=== PATIENT | male | born 1995 | race Caucasian/White ===

== ENCOUNTER 2016-10-21 19:33 | Emergency (ER) | payer OTHER ==
[~2016-10-21] VITALS: Ht 180.3 cm; Wt 59.4 kg
[~2016-10-21 19:33] MED LIST: AMOXICILLIN500 M1 PO; CIPRO500 MG PO; ENDOCET 5-3251 EACH PO; FLAGYL500 MG PO; IMODIUM MS REL1 EACH PO; LIDODERM 5% P1 PATCH TD; MOBIC15 MG PO; MOTRIN600 MG PO; NAPROXEN500 MG PO; NORCO 5/3251 TABLET PO; PREDNISONE20 MG PO; ROXICODONE5 MG PO; SKELAXIN800 MG PO; TAMSULOSIN HCL0.4 MG PO; ULTRAM50 MG PO; VALIUM5 MG PO; VYVANSE30 MG PO; ZOFRAN ODT4 MG PO; ZOFRAN4 MG PO
[2016-10-21 19:53] LABS: HEMATOCRIT 41.5 % (38.0-50.0); MCH 30.4 PG (29.0-34.0); MCHC 35.2 G/DL (30.0-36.0); MCV 86.3 FL (86-99); MEAN PLAT.VOLUME 10.2 uM^3 (9.0-12.4); PLATELET COUNT 170 K/uL (156-360); RBC DIS.WIDTH-CV 12.8 % (11.8-14.6); RBC DIS.WIDTH-SD 39.7 % (39-53); RED BLOOD COUNT 4.81 M/uL (4.00-5.50); WHITE BLOOD COUNT 7.8 K/uL (4.1-10.2)
[2016-10-21 20:03] LABS: CHLORIDE 104 mEq/L (99-109); POTASSIUM 3.7 mEq/L (3.7-5.4); SODIUM 140 mEq/L (136-147)
[2016-10-21 20:04] LABS: GLUCOSE 109 mg/dL (70-99)
[2016-10-21 20:06] LABS: ANION GAP 12 MEQ/L (2-14)
[2016-10-21 20:08] LABS: GFR ESTIMATE (CALCULATED) > 59 mL/min/
[2016-10-21 20:09] LABS: UREA NITROGEN (BUN) 13 mg/dL (9-23)
[2016-10-21 20:13] LABS: TROP-I INTERPRETATION NEGATIVE; TROPONIN-I < 0.01 ng/mL (0.0-0.30)
[2016-10-21] MEDS ORDERED: NAPROXEN500 MG PO (20:42)
[2016-10-21 21:07] VITALS: BP 143/83
== END 2016-10-21 21:10 | disposition home or self-care (01) ==
LOC: RME 19:33 → EME 19:33 → RME 21:10
DX: R07.81 Pleurodynia (principal)
CPT/HCPCS: 71020; 80048; 84484; 85027; 93005; 99281; 99284

== ENCOUNTER 2017-11-02 22:52 | Emergency (ER) | payer OTHER ==
[~2017-11-02] VITALS: Ht 180.3 cm; Wt 54.7 kg
[2017-11-03 01:04] LABS: HEMATOCRIT 39.3 % (38.0-50.0); HEMOGLOBIN 13.9 G/DL (12.5-16.6); MCH 30.2 PG (29.0-34.0); MCHC 35.4 G/DL (30.0-36.0); MCV 85.4 FL (86-99); PLATELET COUNT 115 K/uL (156-360); RBC DIS.WIDTH-CV 12.1 % (11.8-14.6); RBC DIS.WIDTH-SD 37.9 % (39-53); WHITE BLOOD COUNT 3.5 K/uL (4.1-10.2)
[2017-11-03 01:12] LABS: ALBUMIN 4.6 g/dL (3.2-4.8); CHLORIDE 96 mEq/L (99-109); POTASSIUM 3.2 mEq/L (3.7-5.4); SODIUM 137 mEq/L (136-147)
[2017-11-03 01:14] LABS: GLUCOSE 89 mg/dL (70-99); TOTAL PROTEIN 7.3 g/dL (6.4-8.3)
[2017-11-03 01:16] LABS: TOTAL BILIRUBIN 0.5 mg/dL (0.0-1.0)
[2017-11-03 01:18] LABS: ALKALINE PHOSPHATASE 65 IU/L (3-129); CREATININE 1.2 mg/dL (0.6-1.3); GFR ESTIMATE (CALCULATED) > 59 mL/min/ (58.99-99999)
[2017-11-03 01:19] LABS: UREA NITROGEN (BUN) 30 mg/dL (9-23)
[2017-11-03 01:20] LABS: AST (GOT) 28 IU/L (2-34)
[2017-11-03 01:21] LABS: ALT (GPT) 11 IU/L (3-49); LIPASE 31 U/L (1.0-51.0)
[2017-11-03 01:56] LABS: APPEARANCE CLEAR ((CLEAR)); BILIRUBIN NEGATIVE; BLOOD SMALL; COLOR YELLOW ((YELLOW)); GLUCOSE (STRIP) NEGATIVE; KETONES 20; LEUKOCYTES NEGATIVE; NITRITE NEGATIVE; PROTEIN (STRIP) 30; SPECIFIC GRAVITY 1.029 (1.000-1.030); UROBILINOGEN 0.2 MG/DL (0.2-1.0)
[2017-11-03 01:58] LABS: BACTERIA NONE SEEN /HPF; EPITHELIAL CELLS RARE /HPF; MUCUS TRACE /LPF; RED BLOOD CELLS 0-5 /HPF (0-5); WHITE BLOOD CELLS 0-5 /HPF (0-5)
[2017-11-03] MEDS ORDERED: BENTYL10 MG PO (02:46)
[2017-11-03] MEDS ORDERED: ZOFRAN4 MG PO (02:46)
[2017-11-03 03:05] VITALS: BP 127/85
== END 2017-11-03 03:05 | disposition home or self-care (01) ==
LOC: EME 22:52
PROVIDERS: Physician Assistant
DX: K52.9 Noninfective gastroenteritis and colitis, unspecified (principal); J06.9 Acute upper respiratory infection, unspecified
CPT/HCPCS: 71046; 74176; 80053; 81003; 83690; 85027; 87502; 99281; 99283

== ENCOUNTER 2017-11-03 20:04 | Emergency (ER) | payer OTHER ==
[~2017-11-03] VITALS: Ht 180.3 cm; Wt 51.4 kg
[~2017-11-03 20:04] MED LIST changes: +BENTYL10 MG PO
[2017-11-03 22:08] LABS: BASOPHIL (%) 0.2 % (0-1); EOSINOPHIL (%) 0 % (0-5); HEMATOCRIT 38.7 % (38.0-50.0); HEMOGLOBIN 13.9 G/DL (12.5-16.6); IMMATURE GRANULOCYTE (%) 0.2 % (0.0-0.7); LYMPHOCYTE (%) 8.7 % (15-42); LYMPHOCYTE COUNT 0.5 K/uL (1.0-2.8); MCH 30.2 PG (29.0-34.0); MCHC 35.9 G/DL (30.0-36.0); MCV 83.9 FL (86-99); MONOCYTE (%) 5.9 % (3-12); MONOCYTE COUNT 0.3 K/uL (0-0.8); NEUTROPHIL COUNT 4.5 K/uL (1.8-6.4); PLATELET COUNT 103 K/uL (156-360); RBC DIS.WIDTH-CV 11.9 % (11.8-14.6); RBC DIS.WIDTH-SD 36.6 % (39-53); RED BLOOD COUNT 4.61 M/uL (4.00-5.50); WHITE BLOOD COUNT 5.3 K/uL (4.1-10.2)
[2017-11-03 22:18] LABS: ALBUMIN 4.3 g/dL (3.2-4.8); CHLORIDE 96 mEq/L (99-109); SODIUM 133 mEq/L (136-147)
[2017-11-03 22:19] LABS: MAGNESIUM 1.7 mg/dL (1.3-2.7)
[2017-11-03 22:21] LABS: GLUCOSE 91 mg/dL (70-99)
[2017-11-03 22:24] LABS: ALKALINE PHOSPHATASE 58 IU/L (3-129); SERUM ETHYL ALCOHOL < 10 mg/dL
[2017-11-03 22:25] LABS: CREATININE 1.1 mg/dL (0.6-1.3); GFR ESTIMATE (CALCULATED) > 59 mL/min/ (58.99-99999); TOTAL BILIRUBIN 0.7 mg/dL (0.0-1.0)
[2017-11-03 22:26] LABS: AST (GOT) 30 IU/L (2-34); UREA NITROGEN (BUN) 24 mg/dL (9-23)
[2017-11-03 22:27] LABS: ALT (GPT) 13 IU/L (3-49)
[2017-11-03 22:28] LABS: APPEARANCE CLEAR ((CLEAR)); BILIRUBIN NEGATIVE; BLOOD SMALL; COLOR YELLOW ((YELLOW)); GLUCOSE (STRIP) NEGATIVE; KETONES 80; LEUKOCYTES NEGATIVE; NITRITE NEGATIVE; PROTEIN (STRIP) 30; SPECIFIC GRAVITY 1.026 (1.000-1.030)
[2017-11-03 22:28] LABS: LIPASE 29 U/L (1.0-51.0)
[2017-11-03 22:32] LABS: BACTERIA NONE SEEN /HPF; EPITHELIAL CELLS RARE /HPF; MUCUS TRACE /LPF; RED BLOOD CELLS 0-5 /HPF (0-5); UCUL ADDED? NO; WHITE BLOOD CELLS 0-5 /HPF (0-5)
[2017-11-03 22:40] LABS: AMPHETAMINE NEGATIVE (500 ng/mL); BARBITURATES NEGATIVE (200 ng/mL); BENZODIAZEPINES NEGATIVE (150 ng/mL); BUPRENORPHINE NEGATIVE (10 ng/mL); COCAINE NEGATIVE (150 ng/mL); METHADONE NEGATIVE (200 ng/mL); METHAMPHETAMINE NEGATIVE (500 ng/mL); OPIATES (MORPHINE) NEGATIVE (100 ng/mL); OXYCODONE NEGATIVE (100 ng/mL); PHENCYCLIDINE NEGATIVE (25 ng/mL); PROPOXYPHENE NEGATIVE (300 ng/mL); THC CANNABINOIDS PRESUMPTIVE POSITIVE (50 ng/mL); TRICYCLIC ANTIDEPRESSANTS NEGATIVE (300 ng/mL)
[2017-11-03 23:45] VITALS: BP 121/77
== END 2017-11-03 23:46 | disposition home or self-care (01) ==
LOC: EME 20:04
PROVIDERS: Emergency Medicine
DX: B34.9 Viral infection, unspecified (principal); F50.9 Eating disorder, unspecified; E87.6 Hypokalemia
CPT/HCPCS: 80053; 81003; 83690; 83735; 84999; 85025; 90832; 93005; 99281; 99285; G0480; J2405; S0028